=== PATIENT | male | born 1985 ===

== ENCOUNTER 2019-07-18 20:41 | Emergency (ER) | payer OTHER ==
[2019-07-18 23:08] LABS: Urine Appearance Cloudy; Urine Bilirubin Negative (Negative); Urine Blood Negative (Negative); Urine Color Yellow; Urine Glucose Negative (Negative); Urine Ketones Negative (Negative); Urine Nitrite Negative (Negative); Urine Protein Negative (Negative); Urine Specific Gravity 1.021 (1.010-1.030); Urine Urobilinogen Negative (Negative)
[2019-07-18 23:11] LABS: Urine Bacteria Absent (Absent); Urine Red Blood Cell 3+(>10/hpf) (Absent); Urine White Blood Cell 3+(>20/hpf) (Absent)
[2019-07-18] MEDS ORDERED: cefTRIAXone VIAL(*) 250 MG VIAL IM ONE (23:38)
[2019-07-18] MEDS ORDERED: Lidocaine 1% MPF ** 5 ML VIAL IM ONE (23:38)
[2019-07-18] MEDS ORDERED: DOXYcycline CAP(*) 100 MG PO ONE (23:38)
--- NOTE | 2019-07-18 23:41 | ED ---
GI/ HPI - HPI Summary HPI Summary: Patient complains of left testicular pain and swelling 1 week, worse today. Denies trauma, fever, urine symptoms, discharge from penis. Medical history is none. States prior history of epididymitis. - History of Current Complaint Chief Complaint: EDUrogenitalProblems Time Seen by Provider: 07/18/19 23:33 Stated Complaint: L TESTICULAR PAIN PER PT Hx Obtained From: Patient Onset/Duration: Started Days Ago Timing: Constant Severity: Moderate Current Severity: Moderate Pain Intensity: 4 Location of Pain: Groin Additional Locations for Males: Testicles Associated Signs and Symptoms: Positive: Negative - Allergy/Home Medications Allergies/Adverse Reactions: Allergies Allergy/AdvReac Type Severity Reaction Status Date / Time No Known Allergies Allergy Verified 07/18/19 20:42 PMH/Surg Hx/FS Hx/Imm Hx Endocrine/Hematology History: Denies: Hx Anticoagulant Therapy, Hx Diabetes, Hx Thyroid Disease Cardiovascular History: Denies: Hx Hypertension, Hx Pacemaker/ICD Respiratory History: Denies: Hx Asthma, Hx Chronic Obstructive Pulmonary Disease (COPD) History: Denies: Hx Renal Disease Sensory History: Denies: Hx Eye Prosthesis Opthamlomology History: Denies: Hx Legally Blind EENT History: Denies: Hx Deafness Neurological History: Denies: Hx Dementia, Hx Seizures Psychiatric History: Denies: Hx Substance Abuse - Surgical History Surgery Procedure, Year, and Place: umbilical hernia Infectious Disease History: No Infectious Disease History: Denies: Hx Hepatitis, Hx Human Immunodeficiency Virus (HIV), Traveled Outside the [place] in Last 30 Days - Family History Known Family History: Positive: Non-Contributory - Social History Alcohol Use: Weekly Substance Use Type: Reports: None Smoking Status (MU): Never Smoked Tobacco Review of Systems Constitutional: Negative Eyes: Negative ENT: Negative Cardiovascular: Negative Respiratory: Negative Gastrointestinal: Negative Genitourinary: Negative Musculoskeletal: Negative Skin: Negative Neurological/Mental Status: Negative Psychological: Normal All Other Systems Reviewed And Are Negative: Yes Physical Exam Triage Information Reviewed: Yes Vital Signs On Initial Exam: Initial Vitals Temp Pulse Resp BP Pulse Ox 98.0 F 82 18 135/92 98 07/18/19 20:43 07/18/19 20:43 07/18/19 20:43 07/18/19 20:43 07/18/19 20:43 Vital Signs Reviewed: Yes Appearance: Positive: Well-Appearing Skin: Positive: Warm Head/Face: Positive: Normal Head/Face Inspection Eyes: Positive: Normal Neck: Positive: Supple Respiratory/Lung Sounds: Positive: Clear to Auscultation Cardiovascular: Positive: Normal Abdomen Description: Positive: Nontender Male Genital Exam: Positive: Epididymal Tenderness, Testicular Tenderness (L) Musculoskeletal: Positive: Normal Neurological: Positive: Normal Psychiatric: Positive: Normal AVPU Assessment: Alert - [place] Coma Scale Best Eye Response: 4 - Spontaneous Best Motor Response: 6 - Obeys Commands Best Verbal Response: 5 - Oriented Coma Scale Total: 15 Procedures - Sedation Patient Received Moderate/Deep Sedation with Procedure: No Diagnostics - Vital Signs Vital Signs Temp Pulse Resp BP Pulse Ox 07/18/19 23:13 98.6 F 70 18 117/74 07/18/19 20:43 98.0 F 82 18 135/92 98 - Laboratory Lab Results: Lab Results 07/18/19 Range/Units 22:55 Urine Color Yellow Urine Appearance Cloudy Urine pH 5.0 (5-9) Ur Specific [place] 1.021 (1.010-1.030) Urine Protein Negative (Negative) Urine Ketones Negative (Negative) Urine Blood Negative (Negative) Urine Nitrate Negative (Negative) Urine Bilirubin Negative (Negative) Urine Urobilinogen Negative (Negative) Ur Leukocyte Esterase 2+ A (Negative) Urine WBC (Auto) 3+(>20/hpf) A (Absent) Urine RBC (Auto) 3+(>10/hpf) A (Absent) Urine Bacteria Absent (Absent) Urine Glucose Negative (Negative) Lab Statement: Any lab studies that have been ordered have been reviewed, and results considered in the medical decision making process. GIGU Course/Dx - Course Course Of Treatment: Patient complains of left testicular pain and swelling 1 week, worse today. Denies trauma, fever, urine symptoms, discharge from penis. Medical history is none. States prior history of epididymitis. Vital signs within normal limits. Ultrasound of testicles positive for left epididymitis. - Diagnoses Provider Diagnoses: Epididymitis, Left varicocele Discharge ED - Sign-Out/Discharge Documenting (check all that apply): Patient Departure - Discharge Plan Condition: Stable Disposition: HOME Prescriptions: DOXYcycline CAP(*) [DOXYcycline 100MG CAP(*)] 100 mg PO BID 10 Days #20 cap Patient Education Materials: Epididymitis (ED), Varicocele (ED), Testicle Pain (ED) Referrals: Crepet,Tracey, MD [Primary Care Provider] - Zen Dodson MD [Medical Doctor] - Additional Instructions: Take antibiotics as directed. Alternate ibuprofen 600 mg with Tylenol 650 mg every 3 hours for pain if needed. If symptoms persist despite antibiotics follow-up with urology Dr. Dodson for further evaluation. - Billing Disposition and Condition Condition: STABLE Disposition: Home
[2019-07-18 23:57] VITALS: BP 140/84
== END 2019-07-18 23:56 | disposition home or self-care (01) ==
LOC: ED 20:41
DX: N45.1 Epididymitis (principal); I86.1 Scrotal varices; N50.812 Left testicular pain
CPT/HCPCS: 76870; 81003; 81015; 87086; 96372; 99282; A9270-GY; J0696